=== PATIENT | female | born 1975 | race Two or more races ===

== ENCOUNTER 2018-09-10 10:51 | Outpatient (CLI) | payer OTHER | END 2018-09-10 11:18 | disposition home or self-care (01) | LOC: SONOGRAMA 10:51 | DX: D21.12 Benign neoplasm of connective and other soft tissue of left upper limb, including shoulder (principal) ==

== ENCOUNTER 2018-09-28 05:35 | Day surgery (SDC) | payer OTHER ==
[~2018-09-28 05:35] MED LIST: FOLIC ACID1 MG PO; TREXALL7.5 MG PO
== END 2018-09-28 11:55 | disposition home or self-care (01) ==
LOC: CIR.AMB 05:35
DX: D17.1 Benign lipomatous neoplasm of skin and subcutaneous tissue of trunk (principal)